=== PATIENT | female | born 1935 | race Caucasian/White ===

== ENCOUNTER 2021-12-26 09:14 | Emergency (ER) | payer MEDICARE, OTHER ==
[~2021-12-26] VITALS: Ht 152.4 cm; Wt 68.2 kg
[2021-12-26 10:07] LABS: BASO # 0.1 K/mm3 (0.0-0.2); BASO % 0.5 % (0.0-2.0); EOS % 0.4 % (0.0-4.0); GRAN # 7.4 K/mm3 (1.4-6.5); GRAN % 77.7 % (42.2-75.2); HEMATOCRIT 45.1 % (37.0-47.0); HEMOGLOBIN 15.2 g/dl (12.5-16.0); LYMPH # 1.1 K/mm3 (1.2-3.4); LYMPH % 11.9 % (20.0-51.0); MEAN CELL VOLUME 89 fl (80.0-100.0); MEAN CORPUSCULAR HEMOGLOBIN 30 pg (27-31); MEAN CORPUSCULAR HGB CONC 34 g/dl (33.0-37.0); MEAN PLATELET VOLUME 11.1 fl (7.4-10.4); MONO # 0.9 K/mm3 (0.1-0.6); PLATELET COUNT 194 K/mm3 (130-400); RED BLOOD COUNT 5.07 M/mm3 (4.10-5.30); REDCELL DISTRIBUTION WIDTH-CV 12.5 % (11.5-14.5)
[2021-12-26 10:26] LABS: ALBUMIN 3.8 gm/dL (3.4-4.8); BILIRUBIN,TOTAL 0.4 mg/dL (0.2-1.2); CALCIUM 9.3 mg/dL (8.4-10.2); CREATININE, serum 0.79 mg/dL (0.57-1.11); POTASSIUM 3.9 mmol/L (3.5-4.5); TOTAL PROTEIN 7.9 gm/dL (6.2-8.1)
[2021-12-26 10:31] LABS: TROPONIN-I 0.024 ng/mL (0.00-0.033)
[2021-12-26 11:01] LABS: COLLECTION METHOD CLEAN CATCH
[2021-12-26 12:07] LABS: MUCOUS Present (NOT PRESENT); SQUAMOUS EPITHELIAL 0-2 /hpf (0-10); URINE APPEARANCE Clear (CLEAR/HAZY); URINE BACTERIA None Seen /hpf (NONE SEEN); URINE COLOR Yellow (YELLOW)
[2021-12-26 12:08] LABS: PH 7 (5-8); URINE BILIRUBIN Negative (NEGATIVE); URINE BLOOD Negative (NEGATIVE); URINE GLUCOSE Negative (NEGATIVE); URINE KETONE Negative (NEGATIVE); URINE LEUKOCYTE ESTERASE Negative (NEGATIVE); URINE NITRATE Negative (NEGATIVE); URINE PROTEIN(semi-quant) Negative (NEGATIVE); URINE UROBILINOGEN Negative (NEGATIVE)
--- NOTE | 2021-12-26 14:29 | NUR ---
[employer] Developer consulted for patient who was found to be covid positive in the ER and family is concerned about taking her home due to bilateral weakness. PROMISE met with patient's granddaughter, Te (ph#[phone]) outside of patient's room. Patient lives in [place] with her , Ambrocio and is normally independent with ADLS. Te advised patient is very weak and cannot walk at this time, so the concern is how the will lift and care for her. Te advised they have a wheelchair at home but limited family assistance. Te is agreeable to Home Health, however patient does not have a primary care physician. Te reported that Ambrocio sees Dr. Elaine and patient would be agreeable to getting established with Dr. Elaine's office, [facility], even if it's with a different provider. Te advised patient has the funds to pay for private duty services and was agreeable to whatever agency had availability. PROMISE contacted [facility] and faxed referral. Cooper at [facility] advised they can talk with granddaughter about private duty services, but they have a wait list at this time. PROMISE advised she is working to secure primary care so HH can be established. PROMISE then contacted other local private duty agencies to check for availability. [facility] advised they will reach out to Te, however to not have availability until next week at the earliest. [facility] will not provide private duty services for covid positive patients. [facility] does not have private duty availability at this time. [facility] out of [place] does not come to [place] anymore. PROMISE contacted Grace at [facility] and left a message. PROMISE followed up with JAVIER Scherer to provide update. Niesha advised patient is being transferred to [place]. PROMISE followed up with Te and advised message was left for [facility] and referral was sent to [facility] to assist with DC planning from [place].
[2021-12-26 14:31] VITALS: BP 151/67; PULSE 91; TEMP 99
--- NOTE | 2021-12-26 15:03 | NUR ---
[employer] Tester spoke with Grace at [facility] who will speak with Dr. Elaine, then reach out to patient's granddaughter.
== END 2021-12-26 14:31 | disposition short-term general hospital (02) ==
LOC: COL.ER 09:14
PROVIDERS: Emergency Medicine
DX: U07.1 COVID-19 (principal); E87.2 Acidosis; R62.7 Adult failure to thrive; Z68.29 Body mass index [BMI] 29.0-29.9, adult
CPT/HCPCS: J7030